=== PATIENT | male | born 1980 | race Two or more races ===

== ENCOUNTER 2025-06-22 10:03 | Emergency (ER) | payer MEDICAID ==
[~2025-06-22] VITALS: Ht 182.9 cm; Wt 117.9 kg
[2025-06-22] MEDS ORDERED: ACETAMINOPHEN ES 500 MG TABLET ONE (10:31)
[2025-06-22] MEDS ORDERED: IBUPROFEN 400 MG TABLET ONE (10:31)
[2025-06-22] MEDS: ACETAMINOPHEN ES 500 MG TABLET PO ONE (10:50)
[2025-06-22] MEDS: IBUPROFEN 400 MG TABLET PO ONE (10:50)
[2025-06-22] MEDS ORDERED: GUAI1TBM19 PO (11:36)
[2025-06-22] MEDS ORDERED: IBUP-1957 PO (11:36)
[2025-06-22 12:01] VITALS: BP 158/105; TEMP 98.1; O2SAT 99
== END 2025-06-22 12:02 | disposition home or self-care (01) ==
LOC: ER 10:24
DX: S00.93XA Contusion of unspecified part of head, initial encounter (principal); S40.011A Contusion of right shoulder, initial encounter; Z79.1 Long term (current) use of non-steroidal anti-inflammatories (NSAID); W01.0XXA Fall on same level from slipping, tripping and stumbling without subsequent striking against object, initial encounter; Y93.89 Activity, other specified; Y92.89 Other specified places as the place of occurrence of the external cause; Y99.9 Unspecified external cause status
CPT/HCPCS: 70450-TC; 72125-TC; 73030-TC